=== PATIENT | female | born 2005 | race African-American/Black ===

== ENCOUNTER 2024-02-09 19:22 | Emergency (ER) | payer MEDICAID, OTHER | END 2024-02-09 20:14 | disposition left against medical advice (07) | LOC: ER 19:22 | DX: H57.9 Unspecified disorder of eye and adnexa (principal); Z53.21 Procedure and treatment not carried out due to patient leaving prior to being seen by health care provider ==

== ENCOUNTER 2024-04-05 08:40 | Emergency (ER) | payer OTHER, MEDICAID ==
[~2024-04-05] VITALS: Ht 167.6 cm; Wt 62.0 kg
[2024-04-05 08:43] VITALS: BP 123/87; TEMP 98.8; O2SAT 100
[2024-04-05 08:47] VITALS: PULSE 89; RESP 18; O2SAT 99
== END 2024-04-05 09:54 | disposition left against medical advice (07) ==
LOC: ER 09:10
DX: R68.89 Other general symptoms and signs (principal); Z53.21 Procedure and treatment not carried out due to patient leaving prior to being seen by health care provider